=== PATIENT | male | born 1980 | race African-American/Black ===

== ENCOUNTER 2021-03-05 12:01 | Emergency (ER) | payer BC, OTHER ==
[~2021-03-05] VITALS: Ht 172.7 cm; Wt 81.2 kg
--- NOTE | 2021-03-05 12:35 | NUR ---
Dr Rios at the bedside for MSE.
--- NOTE | 2021-03-05 13:26 | NUR ---
Patient discharged to home in stable condition. Written and verbal after care instructions given. Patient verbalizes understanding of instructions. Stressed follow up or return to ER for worsening s/s.
[2021-03-05 13:28] VITALS: BP 135/79
== END 2021-03-05 13:29 | disposition home or self-care (01) ==
LOC: ER 12:01
DX: M67.441 Ganglion, right hand (principal); S69.91XS Unspecified injury of right wrist, hand and finger(s), sequela; Y04.0XXS Assault by unarmed brawl or fight, sequela
CPT/HCPCS: 73090; 73110; 73130; A4663